=== PATIENT | female | born 1955 | race Caucasian/White ===

== ENCOUNTER 2023-07-03 11:54 | Emergency (ER) | payer MEDICARE, SELFPAY ==
[2023-07-03 11:54] VITALS: BMI 28.4
[2023-07-03 11:56] VITALS: BP 152/87
[2023-07-03 12:49] LABS: Urine Albumin Negative (Neg - Trace); Urine Bilirubin Negative (Negative); Urine Character Clear (Clear); Urine Color Yellow; Urine Glucose Negative (Negative); Urine Ketone Negative (Negative); Urine Leukocyte Negative (Negative); Urine Nitrite Negative (Negative); Urine Occult Blood Negative (Negative); Urine Specific Gravity 1.005 (<1.030); Urine Urobilinogen Negative (Neg - 1+)
--- NOTE | 2023-07-03 13:32 | ED.GENMED ---
History of Present Illness
General
Chief Complaint: Dizziness
Source: patient
Exam Limitations: none
Time Seen by Provider: 07/03/23 13:16
Travel History
Have you had any contact with someone who has COVID-19?: No
Do you have any symptoms of coronavirus? Fever > 100 degrees, chills, cough, shortness of breath, sore throat, loss of taste or smell, muscle aches, or headache?: No
History of Present Illness
History of Present Illness:
68-year-old female with history of Parkinson's disease has deep brain stimulators presents with the onset of dizziness last evening. She got up to go to the bathroom in the middle of the night and felt a spinning sensation. She also noticed it
more when she laid flat. She fell like she was going to fall off her bed. There is slight nausea associated with this but no vomiting. She also notes urinary symptoms including dysuria increased frequency and urgency have been ongoing. About 1
week ago she dealt with some type of URI. No current fever. No significant headache. No vision change. No unilateral numbness.
Past History
Past History
ED Past Medical History: GERD, HTN and Other (Osteoarthritis, Parkinson's disease); Negative CAD
ED Past Surgical History: Cardiac (Cardiac catheterization September 2005, normal coronaries), Gynecological (Hysterectomy), Orthopedic (Total knee replacements, bilaterally) and Tonsilectomy
Social History
Tobacco: Non-smoker
Alcohol: None
Personal:
Living: with family
Employment: Employed
Family History
Family History: CAD (Dad and brothers); Negative Early CAD
Phy Exam
Physical Exam
Physical Exam:
General: Well-appearing female no acute respiratory distress
HEENT: Normocephalic atraumatic pupils equal round reactive to light subtle horizontal nystagmus noted
Heart: Regular rate and rhythm no murmurs
Lungs: Clear bilaterally no wheezing
Abdomen: Soft nontender nondistended no guarding or rebound
Neurologic exam: Alert and oriented x 3 no facial asymmetry. [id number] finger-nose intact. Sheldon-Hallpike maneuver reproduces dizziness worse on the right than the left. The dizziness is fatigable
Musculoskeletal exam: The spine is nontender to palpation
Skin is warm no rash
Course
Orders/Labs/Results
Orders:
Orders
07/03/23 11:59
EKG [Electrocardiogram (*1)] Urgent
Reason for Study: Vertigo / Dizzy
CT Head W/o Iv Contrast Urgent
Comment:
Reason For Exam: dizziness
EKG- Treatment ONCE
07/03/23 12:34
Urinalysis Reflex To Culture Urgent
Date Specimen was Collected: 07/03/23
Time Specimen was Collected: 11:59
07/03/23 13:30
PT Consult [Pt Eval And Treat] Urgent
Treatment: vestibular evaluation
Activity Level: Ambulate
07/03/23 13:35
Complete Blood Count/With Diff Urgent
Comprehensive Metabolic Panel Urgent
Abnormal Lab Results
07/03/23
13:35
Creatinine 0.5 L mg/dL
(0.6-1.0)
Glucose 109 H mg/dl
(70-99)
07/03/23 13:35
07/03/23 13:35
Vital Signs
Initial and Last Documented VS:
Initial Vital Signs
Temp Pulse Resp BP Pulse Ox
98.4 F 98 18 152/87 98
07/03/23 11:56 07/03/23 11:56 07/03/23 11:56 07/03/23 11:56 07/03/23 11:56
Last Documented Vital Signs
Temp Pulse Resp BP Pulse Ox
98.4 F 98 18 152/87 98
07/03/23 11:56 07/03/23 11:56 07/03/23 11:56 07/03/23 11:56 07/03/23 11:56
MDM/Problems Addressed
Differential Diagnosis Includes:
Dizziness. Consider vertigo, electrolyte abnormality, anemia. Also has urinary symptoms. Check for UTI
CT head ordered through triage which I have reviewed and is negative.
Consult PT for vestibular eval.
*Critical Care Note
Total Time (30-74mins, 75-104mins- exclusive of procedures): Not Applicable
Update Note
Update Note:
PT saw patient and agrees with potential positional vertigo Sheldon-Hallpike maneuver worse on the right. they did some maneuvers with physical therapy and now patient is no longer dizzy. She is feeling much better. Workup otherwise negative. I
suspect positional vertigo. No ataxia on exam. She has fatigable dizziness. CT negative. Stable for discharge.
ED Attending Note
-
Portions of this chart may have been created with voice recognition software.� Occasional wrong word or��sound alike� substitutions may have occurred due to the inherent limitations of voice recognition software.
Discharge Plan
Departure
Patient Disposition: Home (Routine Discharge)
Date of Disposition: 07/03/23
Time of Disposition: 14:48
Patient with high blood pressure during this ER visit?: No
Discharge Problem:
Vertigo
Instructions: Vertigo (a type of dizziness)
Prescriptions:
New
nitrofurantoin macrocrystal 100 mg capsule
100 mg PO BID 7 Days Qty: 14 0RF
No Action
ibuprofen [Advil Liqui-Gel] 200 MG capsule
400 mg PO PRN PRN (Reason: pain)
amlodipine 2.5 MG tablet
2.5 mg PO DAILY
carbidopa-levodopa 1 TABLET tablet
1.5 tab PO .5 TIMES A DAY
rasagiline [Azilect] 0.5 MG tablet
1 mg PO DAILY
Amantadine
100 mg PO HS
Nitrofurantoin Macrocrystal
1 tab PO DAILY
Sinemet Cr 50/200 (Extended Release):
1 tab PO HS
Referrals:
Cynthia Orourke DO [Family Provider] -
Activity Restrictions/Additional Instructions:
Please follow-up with physical therapy as an outpatient to continue working with the dizziness. Return for worsening symptoms otherwise
Interventions
Interventions:
*Risk Screen - Suicide Last Done: 07/03/23 11:56
*General Assessment Last Done: 07/03/23 11:56
*Neglect/Abuse Screening Last Done: 07/03/23 11:56
ED- Fall Risk Assessment Last Done: 07/03/23 13:40
*ED COVID-19 Vaccine History Last Done: 07/03/23 11:56
ED- Neurological Assessment Last Done: 07/03/23 13:40
ED- Cardiac Assessment Last Done: 07/03/23 13:40
[2023-07-03 13:34] VITALS: BP 119/76
[2023-07-03 13:45] LABS: % Basophils 0.5 % (0-2); % Eosinophils 0.9 % (0-6); % Lymphocytes 21.9 % (20.5-51.1); % Monocytes 4.9 % (1.7-9.3); % Neutrophils 71.8 % (42.2-75.2); Absolute Eosinophils 0.1 10^3/uL (0-0.7); Absolute Lymphocytes 1.6 10^3/uL (1.2-3.4); Absolute Monocytes 0.4 10^3/uL (0.1-0.6); Absolute Neutrophils 5.4 10^3/uL (1.4-6.5); Hematocrit 40.6 % (37.0-47.0); Hemoglobin 14.2 g/dL (12.0-16.0); Mean Corpuscular Volume 85.7 fL (81.0-99.0); Mean Platelet Volume 8.8 fL (7.4-10.4); Nucleated Red Blood Cells % 0 %; Platelet Count 292 10^3/uL (130-400); Red Blood Cell Count 4.74 10^6/uL (4.20-5.40); Red Cell Dist. Width 12.6 % (11.5-14.5); White Blood Cell Count 7.5 10^3/uL (4.8-10.8)
[2023-07-03 14:00] VITALS: BP 104/48
[2023-07-03 14:04] LABS: ALT (SGPT) < 10 U/L (0-35); AST (SGOT) 26 U/L (14-36); Albumin 4.2 g/dl (3.5-5.0); Alkaline Phosphatase 77 U/L (38-126); Blood Urea Nitrogen 10 mg/dl (7-17); Calcium 9.1 mg/dl (8.4-10.2); Carbon Dioxide 28 mmol/L (22-30); Chloride 105 mmol/L (98-107); Estimated Creatinine Clearance 87 ml/min; Glucose 109 mg/dl (70-99); Potassium 4.3 mmol/L (3.5-5.1); Sodium 137 mmol/L (135-145); Total Protein 7.1 g/dl (6.3-8.2); eGFR > 60.00
[2023-07-03 14:16] VITALS: BP 124/72
[2023-07-03 14:33] VITALS: BP 124/72
== END 2023-07-03 15:09 | disposition home or self-care (01) ==
LOC: EMR 11:54
PROVIDERS: EMERGENCY PHYSICIAN Emergency Medicine; FAMILY PHYSICIAN Family Medicine
DX: R42 Dizziness and giddiness (principal); G20.A1 Parkinson's disease without dyskinesia, without mention of fluctuations; K21.9 Gastro-esophageal reflux disease without esophagitis; I10 Essential (primary) hypertension; M19.90 Unspecified osteoarthritis, unspecified site; Z82.49 Family history of ischemic heart disease and other diseases of the circulatory system; Z90.710 Acquired absence of both cervix and uterus; Z96.653 Presence of artificial knee joint, bilateral
CPT/HCPCS: 99284; 70450; 80053; 81003; 85025; 93005

== ENCOUNTER → 2025-01-05 13:00 | Outpatient (REF) | payer MEDICARE, SELFPAY | LOC: WDC 13:00 | PROVIDERS: ATTENDING PHYSICIAN Family Medicine | DX: M81.0 Age-related osteoporosis without current pathological fracture (principal); Z12.31 Encounter for screening mammogram for malignant neoplasm of breast | CPT/HCPCS: 77063; 77067 ==

== ENCOUNTER 2025-01-30 07:12 | Emergency (ER) | payer MEDICARE, SELFPAY ==
[2025-01-30 07:16] VITALS: BP 147/83
[2025-01-30 08:32] VITALS: BP 155/80
--- NOTE | 2025-01-30 08:49 | ED.GENMED ---
History of Present Illness
General
Chief Complaint: Cardiac Symptoms
Source: patient
Time Seen by Provider: 01/30/25 08:36
History of Present Illness
History of Present Illness:
70-year-old female presents emergency room complaining of pain right lower chest. She noticed pain when she lays down. Is worse when she takes a deep breath. No associated nausea vomiting diarrhea. No recent travel. Patient also feeling aches
and pains in her low back and arms
Past History
Past History
ED Past Medical History: GERD, HTN and Other (Osteoarthritis, Parkinson's disease); Negative CAD
ED Past Surgical History: Cardiac (Cardiac catheterization September 2005, normal coronaries), Gynecological (Hysterectomy), Orthopedic (Total knee replacements, bilaterally) and Tonsilectomy
Social History
Tobacco: Non-smoker
Alcohol: None
Personal:
Living: with family
Employment: Employed
Family History
Family History: CAD (Dad and brothers); Negative Early CAD
Phy Exam
Physical Exam
Physical Exam:
General: Awake, Alert, Oriented X3. No acute distress.
Vitals: unremarkable
Head: Atraumatic
Eyes: Pupils equal, EOMI
Throat: Airway intact, no exudates
Neck: Trachea midline
Chest: Tenderness palpation right lower thorax
Lungs: Clear and equal b/l
Heart: Regular rate, no murmurs
Abd: Soft, Nontender, No pulsatile mass
Neuro: Nonfocal
Skin: Warm, dry, no rash
Extremities: pulses equal b/l, no edema
Course
Orders/Labs/Results
Orders:
Orders
01/30/25 07:18
Electrocardiogram (*1) Urgent
Reason for Study: Other
Other Reason for Exam: cardiac symptoms
EKG- Treatment ONCE
01/30/25 08:49
CR Chest - 2 Views Urgent
Comment:
Reason For Exam: right chest pain
01/30/25 09:21
COVID-19 Antigen Urgent
Source: Nasal Swab
Complete Blood Count/With Diff Urgent
Comprehensive Metabolic Panel Urgent
D-Dimer Urgent
Lipase Urgent
Influenza A+B Rapid Molecular Urgent
[place] Source: Nasal Swab
Specimen Description:
01/30/25 10:19
CT Chest PE Study Urgent
Comment:
Reason For Exam: r chest pain
Abnormal Lab Results
01/30/25
09:21
D-Dimer 0.74 H ug/mlFEU
(0.00-0.50)
Glucose 106 H mg/dl
(70-99)
01/30/25 09:21
01/30/25 09:21
Vital Signs
Initial and Last Documented VS:
Initial Vital Signs
Temp Pulse Resp BP Pulse Ox
97.8 F 102 18 147/83 94
01/30/25 07:16 01/30/25 07:16 01/30/25 07:16 01/30/25 07:16 01/30/25 07:16
Last Documented Vital Signs
Temp Pulse Resp BP Pulse Ox
97.8 F 101 21 155/80 93
01/30/25 07:16 01/30/25 11:00 01/30/25 11:00 01/30/25 08:32 01/30/25 10:30
MDM/Problems Addressed
Differential Diagnosis Includes:
ACS, pneumothorax, PE, chest wall pain, costochondritis
MDM/Problems Addressed:
Patient presents with right-sided lower thorax bleeding. EKG shows no acute ischemic changes. Troponin is normal. D-dimer is elevated. CT of the chest to rule out PE was performed. There is no acute abnormalities on the hiatal hernia. Patient
stable for discharge home and outpatient follow
*Pulse Oximetry
SaO2: 94
Oxygen Mode of Delivery: Room air
Patient hypoxic: no
*EKG
Interpreted by ED Provider?: Yes
Interpretation: normal
Heart Rate: 89
Rate: normal
Rhythm: sinus
[place]: normal axis
Interval: normal interval
QRS Pattern: normal QRS
Ischemia: no ischemia
*Enlisted Aircrew/Aerial Observer/Gunner Interpretation
Rate: normal
Interpretation: normal
Rhythm: sinus
*Critical Care Note
Total Time (30-74mins, 75-104mins- exclusive of procedures): Not Applicable
ED Attending Note
-
Portions of this chart may have been created with voice recognition software.� Occasional wrong word or��sound alike� substitutions may have occurred due to the inherent limitations of voice recognition software.
Discharge Plan
Departure
Patient Disposition: Home (Routine Discharge)
Date of Disposition: 01/30/25
Time of Disposition: 12:52
Patient with high blood pressure during this ER visit?: Yes
Condition: Good
Discharge Problem:
Chest pain
Instructions: Chest Pain (DC), BLOOD PRESSURE
Prescriptions:
No Action
ibuprofen [Advil Liqui-Gel] 200 MG capsule
400 mg PO PRN PRN (Reason: pain)
amlodipine 2.5 MG tablet
2.5 mg PO DAILY
carbidopa-levodopa 1 TABLET tablet
1.5 tab PO .5 TIMES A DAY
rasagiline [Azilect] 0.5 MG tablet
1 mg PO DAILY
Amantadine
100 mg PO HS
Nitrofurantoin Macrocrystal
1 tab PO DAILY
Sinemet Cr 50/200 (Extended Release):
1 tab PO HS
nitrofurantoin macrocrystal 100 mg capsule
100 mg PO BID 7 Days Qty: 14 0RF
Referrals:
Cynthia Orourke DO [Family Provider, Family Practice]
Interventions
Interventions:
*Risk Screen - Suicide Last Done: 01/30/25 07:16
*General Assessment Last Done: 01/30/25 07:16
*Neglect/Abuse Screening Last Done: 01/30/25 07:16
*ED- Fall Risk Assessment Last Done: 01/30/25 10:28
*ED COVID-19 Vaccine History Last Done: 01/30/25 10:28
*ED Influenza Vaccine History Last Done: 01/30/25 10:28
ED- Pulmonary Assessment Last Done: 01/30/25 13:05
Discharge Date and Time
Print Language: [place]
[2025-01-30 09:33] LABS: Hematocrit 40.6 % (37.0-47.0); Hemoglobin 13.8 g/dL (12.0-16.0); Mean Corp Hgb Conc. 34.0 g/dL (33.0-37.0); Mean Corpuscular Volume 87.7 fL (81.0-99.0); Nucleated Red Blood Cells % 0 %; Platelet Count 331 10^3/uL (130-400); Red Cell Dist. Width 12.5 % (11.5-14.5)
[2025-01-30 09:45] LABS: D-Dimer 0.74 ug/mlFEU (0.00-0.50)
[2025-01-30 09:50] LABS: COVID-19 Antigen Negative (Negative)
[2025-01-30 09:58] LABS: ALT (SGPT) < 10 U/L (0-35); AST (SGOT) 19 U/L (14-36); Albumin 4.5 g/dl (3.5-5.0); Alkaline Phosphatase 92 U/L (38-126); Blood Urea Nitrogen 10 mg/dl (7-17); Calcium 9.1 mg/dl (8.4-10.2); Carbon Dioxide 27 mmol/L (22-30); Chloride 105 mmol/L (98-107); Glucose 106 mg/dl (70-99); Lipase 55 U/L (23-300); Potassium 4.1 mmol/L (3.5-5.1); Sodium 140 mmol/L (135-145); Total Protein 7.3 g/dl (6.3-8.2); eGFR > 60.00
[2025-01-30 13:08] VITALS: BP 128/79
[2025-01-30 13:12] VITALS: BP 136/81
== END 2025-01-30 13:15 | disposition home or self-care (01) ==
LOC: EMR 07:12
PROVIDERS: EMERGENCY PHYSICIAN Emergency Medicine; FAMILY PHYSICIAN Family Medicine
DX: R07.9 Chest pain, unspecified (principal); I10 Essential (primary) hypertension; G20.A1 Parkinson's disease without dyskinesia, without mention of fluctuations; K21.9 Gastro-esophageal reflux disease without esophagitis; K44.9 Diaphragmatic hernia without obstruction or gangrene; M19.90 Unspecified osteoarthritis, unspecified site; Z96.653 Presence of artificial knee joint, bilateral; Z82.49 Family history of ischemic heart disease and other diseases of the circulatory system
CPT/HCPCS: 99284; 71046; 71275; 80053; 83690; 85025; 85379; 87502; 87811; 93005; Q9967